=== PATIENT | male | born 1975 | race Caucasian/White ===

== ENCOUNTER 2018-07-11 14:13 | Emergency (ER) | payer BC ==
[2018-07-11] MEDS ORDERED: NS 1,000 ML IV ONE (14:27)
--- NOTE | 2018-07-11 14:27 | EDPHY ---
H & P Stated Complaint: passed out/dehyrated Time Seen by Provider: 07/11/18 14:27 HPI/ROS: HPI CHIEF COMPLAINT: Dehydration, lightheadedness, presyncope HISTORY OF PRESENT ILLNESS: 42-year-old male, otherwise healthy no significant medical history does not take any daily medications visiting from [place] here yesterday. Been staying in [place] went for hike today. Got to about 7000 ft felt very lightheaded and weak. [place] like he was going to pass out. Did not have any chest pain. Did not have any vomiting. He did smoke marijuana additionally do this. He did not drink any fluids. He presents emergency room by EMS for lightheadedness. Also additionally reports he drank large amount of alcohol last night. Did not drink much water today. Past Medical History: No medical history Past Surgical History: No surgical history Social History: Denies daily use of drugs alcohol tobacco. Did smoke marijuana today. Alcohol last night. Family History: Noncontributory ROS REVIEW OF SYSTEMS: 10 Systems were reviewed and negative with the exception of the elements mentioned in the history of present illness. Exam Constitutional nontoxic, triage nursing summary reviewed, vital signs reviewed , awake/alert. Noted be tachycardic. Eyes normal conjunctivae and sclera, EOMI, PERRLA. HENT normal inspection, atraumatic, moist mucus membranes, no epistaxis, neck supple/ no meningismus, no raccoon eyes. Respiratory clear to auscultation bilaterally, normal breath sounds, no respiratory distress, no wheezing. Cardiovascular tachycardia,, regular rhythm, no murmur, no edema, distal pulses normal. Gastrointestinal soft, non-tender, no rebound, no guarding, normal bowel sounds, no distension, no pulsatile mass. Genitourinary no CVA tenderness. Musculoskeletal no midline vertebral tenderness, full range of motion, no calf swelling, no tenderness of extremities, no meningismus, good pulses, neurovascularly intact. Skin pink, warm, & dry, no rash, skin atraumatic. Neurologic awake, alert and oriented x 3, AAOx3, moves all 4 extremities equally, motor intact, sensory intact, CN II-XII intact, normal cerebellar, normal vision, normal speech. Psychiatric normal mood/affect. Heme/Lymph/Immune no lymphadenopathy. Differential Diagnosis: Includes but is not limited to in a particular order acute dehydration, electrolyte disturbance, cardiac arrhythmia, marijuana intoxication Medical Decision Making: Plan for this patient IV establishment IV fluid bolus 2 L, EKG, basic electrolytes, troponin re-evaluate. Re-evaluation: EKG interpretation by me on record in [employer] system. Impression time of EKG 1447, sinus tach 122. No signs of acute ischemia. Repeat EKG time 4:31 p.m., EKG shows sinus tach 120. Without signs of cardiac arrhythmia or ischemia. Patient persistently tachycardic despite fluids here. Will obtain a chest x-ray add on a D-dimer. Patient has no chest pain or shortness of breath. Patient has been persistently tachycardic here in the 120s. Patient reports to me his baseline tachycardia is around 100-105. This is his baseline heart rate. Patient here in emergency room is received 2 L of fluid. 2 EKGs performed which sinus tach but no ischemia or cardiac arrhythmia. D-dimer pending Chest x-ray: Negative for acute cardiopulmonary disease. 1747: Current heart rate at this time 1:01 a.m.. D-dimer negative. 2nd troponin 0.00 Recommend when he returns [place] he should follow up with primary care/ Cardiology for tachycardia. He understands this. Feels comfortable with discharge planning. Return precautions discussed with him return if chest pain, shortness of breath , not feeling well. Source: Patient - Medical/Surgical History Hx Asthma: No Hx Chronic Respiratory Disease: No Hx Diabetes: No Hx Cardiac Disease: No Hx Renal Disease: No Hx Cirrhosis: No Hx Alcoholism: No Hx HIV/AIDS: No Hx Splenectomy or Spleen Trauma: No Other PMH: thyroid, ADHD - Social History Smoking Status: Never smoked Constitutional: Initial Vital Signs Temperature (C) 36.7 C 07/11/18 14:18 Heart Rate 127 H 07/11/18 14:18 Respiratory Rate 18 07/11/18 14:18 Blood Pressure 142/101 H 07/11/18 14:18 O2 Sat (%) 95 07/11/18 14:18 O2 Delivery Mode Room Air Allergies/Adverse Reactions: No Known Allergies Allergy (Unverified 07/11/18 14:20) Medical Decision Making - Diagnostics Imaging Results: Imaging Impressions Chest X-Ray 07/11/18 16:36 Impression: Clear lungs. Negative portable chest. - Data Points Laboratory Results: Laboratory Results 07/11/18 14:20 07/11/18 14:30 07/11/18 07/11/18 07/11/18 17:54 16:40 15:22 WBC RBC Hgb Hct MCV MCH MCHC RDW Plt Count MPV Neut % (Auto) Lymph % (Auto) Cooper % (Auto) Eos % (Auto) Baso % (Auto) Nucleat RBC Rel Count Absolute Neuts (auto) Absolute Lymphs (auto) Absolute Monos (auto) Absolute Eos (auto) Absolute Basos (auto) Absolute Nucleated RBC Immature Gran % Immature Gran # D-Dimer < 0.27 ug/mLFEU ug/mLFEU (0.00-0.50) Sodium Potassium Chloride Carbon Dioxide Anion Gap BUN Creatinine Estimated GFR Glucose Calcium Magnesium Total Bilirubin Conjugated Bilirubin Unconjugated Bilirubin AST ALT Alkaline Phosphatase POC Troponin I 0.00 ng/mL ng/mL 0.00 ng/mL ng/mL (0.00-0.08) (0.00-0.08) NT-Pro-B Natriuret Pep Total Protein Albumin Urine Opiates Screen Urine Barbiturates Ur Phencyclidine Scrn Ur Amphetamine Screen U Benzodiazepines Scrn Urine Cocaine Screen U Marijuana (THC) Screen 07/11/18 07/11/18 07/11/18 15:10 14:30 14:20 WBC 10.67 10^3/uL H 10^3/uL (3.80-9.50) RBC 5.46 10^6/uL 10^6/uL (4.40-6.38) Hgb 16.3 g/dL g/dL (13.7-17.5) Hct 48.0 % % (40.0-51.0) MCV 87.9 fL fL (81.5-99.8) MCH 29.9 pg pg (27.9-34.1) MCHC 34.0 g/dL g/dL (32.4-36.7) RDW 12.8 % % (11.5-15.2) Plt Count 206 10^3/uL 10^3/uL (150-400) MPV 11.4 fL fL (8.7-11.7) Neut % (Auto) 79.9 % H % (39.3-74.2) Lymph % (Auto) 13.0 % L % (15.0-45.0) Cooper % (Auto) 5.6 % % (4.5-13.0) Eos % (Auto) 0.8 % % (0.6-7.6) Baso % (Auto) 0.3 % % (0.3-1.7) Nucleat RBC Rel Count 0.0 % % (0.0-0.2) Absolute Neuts (auto) 8.52 10^3/uL H 10^3/uL (1.70-6.50) Absolute Lymphs (auto) 1.39 10^3/uL 10^3/uL (1.00-3.00) Absolute Monos (auto) 0.60 10^3/uL 10^3/uL (0.30-0.80) Absolute Eos (auto) 0.09 10^3/uL 10^3/uL (0.03-0.40) Absolute Basos (auto) 0.03 10^3/uL 10^3/uL (0.02-0.10) Absolute Nucleated RBC 0.00 10^3/uL 10^3/uL (0-0.01) Immature Gran % 0.4 % % (0.0-1.1) Immature Gran # 0.04 10^3/uL 10^3/uL (0.00-0.10) D-Dimer Sodium 137 mEq/L mEq/L (135-145) Potassium 4.0 mEq/L mEq/L (3.3-5.0) Chloride 103 mEq/L mEq/L (97-110) Carbon Dioxide 26 mEq/l mEq/l (22-31) Anion Gap 8 mEq/L mEq/L (8-16) BUN 19 mg/dL mg/dL (7-23) Creatinine 1.1 mg/dL mg/dL (0.7-1.3) Estimated GFR > 60 Glucose 114 mg/dL H mg/dL (70-100) Calcium 9.3 mg/dL mg/dL (8.5-10.4) Magnesium 1.7 mg/dL mg/dL (1.6-2.3) Total Bilirubin 0.6 mg/dL mg/dL (0.1-1.4) Conjugated Bilirubin 0.2 mg/dL mg/dL (0.0-0.5) Unconjugated Bilirubin 0.4 mg/dL mg/dL (0.0-1.1) AST 28 IU/L IU/L (17-59) ALT 41 IU/L IU/L (21-72) Alkaline Phosphatase 77 IU/L IU/L (38-126) POC Troponin I NT-Pro-B Natriuret Pep < 11 pg/mL pg/mL (0-125) Total Protein 6.9 g/dL g/dL (6.3-8.2) Albumin 4.1 g/dL g/dL (3.5-5.0) Urine Opiates Screen NEGATIVE (NEGATIVE) Urine Barbiturates NEGATIVE (NEGATIVE) Ur Phencyclidine Scrn NEGATIVE (NEGATIVE) Ur Amphetamine Screen NON-NEGATIVE H (NEGATIVE) U Benzodiazepines Scrn NEGATIVE (NEGATIVE) Urine Cocaine Screen NEGATIVE (NEGATIVE) U Marijuana (THC) Screen NON-NEGATIVE H (NEGATIVE) Medications Given: Discontinued Medications Sodium Chloride (Ns) 1,000 mls @ 0 mls/hr IV EDNOW ONE; Wide Open PRN Reason: Protocol Stop: 07/11/18 14:28 Last Admin: 07/11/18 14:28 Dose: 1,000 mls Sodium Chloride (Ns) 2,000 mls @ 0 mls/hr IV EDNOW ONE; Wide Open PRN Reason: Protocol Stop: 07/11/18 14:39 Last Admin: 07/11/18 14:44 Dose: 2,000 mls Lorazepam (Ativan Injection) 0.5 mg IVP EDNOW ONE Stop: 07/11/18 17:46 Last Admin: 07/11/18 17:51 Dose: Not Given Point of Care Test Results: Chemistry 07/11/18 07/11/18 17:54 15:22 POC Troponin I 0.00 ng/mL ng/mL 0.00 ng/mL ng/mL (0.00-0.08) (0.00-0.08) Departure - Departure Disposition: Home, Routine, Self-Care Clinical Impression: Dehydration, Tachycardia Condition: Good Instructions: Dehydration (ED), Tachycardia (ED) Additional Instructions: 1. Stay well-hydrated drink lots of fluids 2. Return to the emergency room if there is worsening symptoms questions or concerns. Referrals: Patient,NotPresent [Unknown] - As per Instructions
[2018-07-11] MEDS ORDERED: NS 2,000 ML IV ONE (14:38)
[2018-07-11 14:45] LABS: PLATELET COUNT 206 10^3/uL (150-400)
[2018-07-11] MEDS ORDERED: LORazepam 2 MG/ML INJ IVP ONE (17:45)
[2018-07-11 18:11] VITALS: BP 140/100
--- NOTE | 2018-07-19 05:47 | CPEKG ---
Test Reason : OPEN Blood Pressure : / mmHG Vent. Rate : 120 BPM Atrial Rate : 120 BPM P-R Int : 152 ms QRS Dur : 087 ms QT Int : 321 ms P-R-T Axes : 059 078 031 degrees QTc Int : 454 ms Sinus tachycardia Confirmed by Carlo Ryder ([id number]) on 07/19/2018 5:46:59 AM Referred By: Confirmed By:Carlo Ryder
--- NOTE | 2018-07-19 05:47 | CPEKG ---
Test Reason : OPEN Blood Pressure : / mmHG Vent. Rate : 122 BPM Atrial Rate : 122 BPM P-R Int : 156 ms QRS Dur : 093 ms QT Int : 323 ms P-R-T Axes : 065 086 034 degrees QTc Int : 460 ms Sinus tachycardia Confirmed by Carlo Ryder ([id number]) on 07/19/2018 5:46:58 AM Referred By: Confirmed By:Carlo Ryder
== END 2018-07-11 18:11 | disposition home or self-care (01) ==
DX: R42 Dizziness and giddiness (principal); E86.0 Dehydration; R00.0 Tachycardia, unspecified
CPT/HCPCS: 80305; 84484-PO